=== PATIENT | female | born 1955 | race Caucasian/White ===

== ENCOUNTER 2019-04-25 16:30 | Emergency (ER) | payer MEDICAID ==
[~2019-04-25] VITALS: Ht 165.1 cm; Wt 85.0 kg
[2019-04-25 16:38] VITALS: BP 216/97
[2019-04-25] MEDS ORDERED: TRAM50TA2 PO (16:45)
[2019-04-25] MEDS ORDERED: PENI500T2 PO (16:45)
[2019-04-25] MEDS ORDERED: traMADol 50MG tablet PO ONE (16:45)
== END 2019-04-25 17:14 | disposition home or self-care (01) ==
LOC: ER 16:31
DX: K08.89 Other specified disorders of teeth and supporting structures (principal); Z88.5 Allergy status to narcotic agent
CPT/HCPCS: 99283

== ENCOUNTER 2019-10-28 16:36 | Emergency (ER) | payer MEDICAID ==
[~2019-10-28] VITALS: Ht 165.1 cm; Wt 85.9 kg
[2019-10-28 17:21] LABS: CLARITY,URINE SLIGHTLY CLOUDY (Clear); COLOR,URINE YELLOW (Yellow); GLUCOSE, URINE NEGATIVE (Neg); KETONES,URINE NEGATIVE (Neg); LEUKOCYTE ESTERASE ,URINE NEGATIVE (Neg); NITRITES, URINE NEGATIVE (Neg); OCCULT BLOOD,URINE LARGE (Neg); PH,URINE 5.5 (4.8-8.0); PROTEIN,URINE NEGATIVE (Neg); UROBILINOGEN,URINE 0.2 E.U/dL (0.2-1.0)
[2019-10-28 17:23] LABS: UA COLLECTION TYPE CLN CATCH MIDSTREAM
[2019-10-28 17:23] LABS: BASOPHILS # (AUTO) 0.1 X10'3 (0-0.2); BASOPHILS % (AUTO) 0.8 % (0-1); EOSINOPHILS # (AUTO) 0.1 X10'3 (0-0.9); EOSINOPHILS % (AUTO) 1.6 % (0-6); HEMOGLOBIN 15.5 g/dl (12.0-16.0); LYMPHOCYTES # (AUTO) 1.7 X10'3 (1.1-4.8); LYMPHOCYTES % (AUTO) 24.4 % (21-51); MEAN CORPUSCULAR HEMOGLOBIN 30.6 PG (27.0-31.0); MEAN CORPUSCULAR HGB CONC 33.7 g/dL (33.0-36.5); MEAN CORPUSCULAR VOLUME 90.8 FL (78-98); MEAN PLATELET VOLUME 8.8 FL (7.4-10.4); MONOCYTES # (AUTO) 0.6 X10'3 (0-0.9); MONOCYTES % (AUTO) 7.8 % (2-12); NEUTROPHILS # (AUTO) 4.6 X10'3 (1.8-7.7); NEUTROPHILS % (AUTO) 65.4 % (42-75); PLATELET COUNT 207 X10'3 (140-440); RED BLOOD COUNT 5.06 X10'6 (4.20-5.60); RED CELL DISTRIBUTION WIDTH 14.3 % (11.5-14.5)
[2019-10-28 17:34] LABS: ALANINE AMINOTRANSFERASE 30 U/L (12-78); ALBUMIN 4.4 G/DL (3.4-5.0); ALBUMIN/GLOBULIN RATIO 1.4 (1.1-1.5); ALKALINE PHOSPHATASE 123 IU/L (46-116); ANION GAP 19 (8-16); ASPARTATE AMINO TRANSFERASE 18 U/L (10-37); BILIRUBIN,TOTAL 0.3 MG/DL (0.1-1.0); BLOOD UREA NITROGEN 20 MG/DL (7-18); BUN/CREATININE RATIO 27.8 (6.6-38.0); CALCIUM 9.8 MG/DL (8.5-10.1); CHLORIDE 107 MMOL/L (99-107); CREATININE 0.72 MG/DL (0.40-0.90); GLUCOSE 91 MG/DL (70-104); LIPASE 119 U/L (73-393); POTASSIUM 3.7 MMOL/L (3.5-5.1); SODIUM 141 MMOL/L (135-145); TOTAL PROTEIN 7.5 G/DL (6.4-8.2); eGFR 82 ML/MIN
[2019-10-28] MEDS ORDERED: normal saline 1000ML IV soln IVB ONE (17:35)
[2019-10-28] MEDS ORDERED: LORazepam 2 mg/ml vial IV ONE (17:35)
[2019-10-28] MEDS ORDERED: ketorolac trometh. 30mg/ml inj. IV ONE (17:35)
[2019-10-28] MEDS ORDERED: morphine 4 MG/ML inj SYRINge IV ONE (17:35)
[2019-10-28 17:38] LABS: SQUAMOUS EPITHELIAL CELL,UR FEW /LPF (FEW)
[2019-10-28 17:39] LABS: BACTERIA,URINE FEW /HPF (Neg); RBC,URINE 20-50 /HPF (0-2); WBC,URINE 0-4 /HPF (0-4)
[2019-10-28] MEDS ORDERED: ondansetron/PF 4mg/2ml inj IV ONE (17:45)
[2019-10-28] MEDS ORDERED: HYDR-4383 PO (20:05)
[2019-10-28] MEDS ORDERED: FLO0.4C PO (20:05)
[2019-10-28] MEDS ORDERED: ondansetron 4mg rapidly disintigrating tab PO ONE (20:15)
[2019-10-28] MEDS ORDERED: oxyCODONE/APAP 10/325mg tablet PO ONE (20:15)
[2019-10-28 20:37] VITALS: BP 171/90
== END 2019-10-28 20:41 | disposition left against medical advice (07) ==
LOC: ER 16:37
DX: N13.9 Obstructive and reflux uropathy, unspecified (principal); N20.0 Calculus of kidney; R19.7 Diarrhea, unspecified; Z98.890 Other specified postprocedural states; Z88.5 Allergy status to narcotic agent; Z79.899 Other long term (current) drug therapy
CPT/HCPCS: 36415; 74176; 76775; 80053; 81001; 83690; 85025; 96374; 96375; 99285; J1885; J2060; J2270; J2405; J7030